=== PATIENT | male | born 1965 | race Caucasian/White ===

== ENCOUNTER 2017-06-14 15:49 | Emergency (ER) | payer BC, OTHER ==
[~2017-06-14] VITALS: Ht 172.7 cm; Wt 84.6 kg
[~2017-06-14 15:49] MED LIST: ALPR2TAB PO; CYCL10TA50; FENO145T32 PO; GABA600T PO; HYDR-3307 PO; PROM25TA10 PO; QUET300T5 PO
[2017-06-14] MEDS ORDERED: OXYcodone/APAP 5/325MG TABLET ONE (16:18)
[2017-06-14] MEDS ORDERED: OXYcodone/APAP 5/325MG TABLET PO ONE (16:30)
[2017-06-14 18:25] VITALS: BP 152/102
== END 2017-06-14 18:28 | disposition home or self-care (01) ==
LOC: ED 17:29
DX: S39.012A Strain of muscle, fascia and tendon of lower back, initial encounter (principal); S29.012A Strain of muscle and tendon of back wall of thorax, initial encounter; M51.36 Other intervertebral disc degeneration, lumbar region; M54.41 Lumbago with sciatica, right side; F17.210 Nicotine dependence, cigarettes, uncomplicated; Z98.890 Other specified postprocedural states; W10.9XXA Fall (on) (from) unspecified stairs and steps, initial encounter; Y93.01 Activity, walking, marching and hiking; Y92.89 Other specified places as the place of occurrence of the external cause; Y99.8 Other external cause status
CPT/HCPCS: 72050; 72072; 72110; 99284